=== PATIENT | male | born 1950 | race Caucasian/White ===

== ENCOUNTER 2018-11-08 12:45 | Emergency (ER) | payer OTHER ==
[~2018-11-08] VITALS: Ht 195.6 cm; Wt 115.7 kg
[~2018-11-08 12:45] MED LIST: ALDACTONE25 MG PO; ASPIR 8181 M1 PO; ASPIRIN81 M2 PO; ATORVASTATIN CA40 MG PO; CEFUROXIME500 MG PO; COLACE100 MG PO; COREG12.5 MG PO; COREG3.125 MG PO; DUONEB 2.5-0.5 M3 ML INH; EFFIENT10 MG PO; ELIQUIS5 MG PO; HYDROCODONE-AP1 EAC6 PO; LASIX 20 MG TAB20 MG PO; LASIX 40 MG TAB40 M2 PO; LISINOPRIL10 MG PO; LISINOPRIL5 MG PO; MELATONIN5 M1 PO; PACERONE 200 M200 M1 PO; PACERONE200 MG PO; PEG3350510 GM PO; PEPCID20 MG PO; PREDNISONE 10 M10 M1 PO; PREDNISONE 10 M10 MG PO; PREDNISONE 20 M20 MG; PREDNISONE 5 MG5 M1 PO; SENNA8.6 MG PO; SPIRONOLACTONE25 M1 PO; TYLENOL325 MG PO
[2018-11-08 14:44] VITALS: BP 132/65
== END 2018-11-08 14:44 | disposition home or self-care (01) ==
LOC: ER 12:45
DX: L97.128 Non-pressure chronic ulcer of left thigh with other specified severity (principal); I50.9 Heart failure, unspecified; J44.9 Chronic obstructive pulmonary disease, unspecified; Z96.651 Presence of right artificial knee joint

== ENCOUNTER → 2018-11-09 | Outpatient (CLI) | payer OTHER | LOC: HYPER 06:53 | DX: S70.312A Abrasion, left thigh, initial encounter (principal); I25.10 Atherosclerotic heart disease of native coronary artery without angina pectoris; I73.9 Peripheral vascular disease, unspecified; I25.2 Old myocardial infarction; I11.0 Hypertensive heart disease with heart failure; I50.9 Heart failure, unspecified; Z95.1 Presence of aortocoronary bypass graft; Z87.01 Personal history of pneumonia (recurrent); Z87.891 Personal history of nicotine dependence; X58.XXXA Exposure to other specified factors, initial encounter; Y93.89 Activity, other specified; Y92.89 Other specified places as the place of occurrence of the external cause; Y99.8 Other external cause status ==

== ENCOUNTER → 2018-11-16 | Outpatient (CLI) | payer OTHER | LOC: HYPER 06:42 | DX: S70.312D Abrasion, left thigh, subsequent encounter (principal); I25.10 Atherosclerotic heart disease of native coronary artery without angina pectoris; I73.9 Peripheral vascular disease, unspecified; I25.2 Old myocardial infarction; I11.0 Hypertensive heart disease with heart failure; I50.9 Heart failure, unspecified; Z95.1 Presence of aortocoronary bypass graft; Z87.01 Personal history of pneumonia (recurrent); Z87.891 Personal history of nicotine dependence; W22.8XXD Striking against or struck by other objects, subsequent encounter ==

== ENCOUNTER → 2018-12-06 | Outpatient (CLI) | payer OTHER | LOC: HYPER 06:30 | DX: S70.312D Abrasion, left thigh, subsequent encounter (principal); I73.9 Peripheral vascular disease, unspecified; I11.0 Hypertensive heart disease with heart failure; I50.9 Heart failure, unspecified; I25.10 Atherosclerotic heart disease of native coronary artery without angina pectoris; I25.2 Old myocardial infarction; Z95.0 Presence of cardiac pacemaker; Z87.891 Personal history of nicotine dependence; Z87.01 Personal history of pneumonia (recurrent); X58.XXXD Exposure to other specified factors, subsequent encounter ==

== ENCOUNTER → 2018-12-25 | Outpatient (CLI) | payer OTHER | LOC: HYPER 07:32 | DX: S70.312D Abrasion, left thigh, subsequent encounter (principal); I11.0 Hypertensive heart disease with heart failure; I50.9 Heart failure, unspecified; I25.10 Atherosclerotic heart disease of native coronary artery without angina pectoris; I73.9 Peripheral vascular disease, unspecified; I25.2 Old myocardial infarction; Z95.1 Presence of aortocoronary bypass graft; Z87.01 Personal history of pneumonia (recurrent); Z87.891 Personal history of nicotine dependence; X58.XXXD Exposure to other specified factors, subsequent encounter ==

== ENCOUNTER 2019-07-04 10:02 | Inpatient (IN) | payer OTHER ==
[~2019-07-04] VITALS: Ht 195.6 cm; Wt 121.3 kg
--- NOTE | ~2019-07-04 | EKG ---
[facility] [place] [address] ELECTROCARDIOGRAM REPORT Name: CLEMENTINA PINEDA Room #: PRE M.R.#: [id number] Admission: Attend Phys: Discharge: Date of : 48 Report #: [id number] THIS REPORT FOR: cc: Bryan Adams MD ~ THIS REPORT FOR: //name// [facility] ED Test Date: 2019-07-04 Test Time: 10:09:35 Pat Name: CLEMENTINA PINEDA Department: Room: Gender: M Senior Business Architect: MENG : 1950 Requested By: Adrian Madden Order Number: [id number] MD: Measurements Intervals [place] Rate: 132 P: -49 AR: 104 QRS: -50 QRSD: 120 T: 121 QT: 357 QTc: 529 Interpretive Statements Sinus or ectopic atrial tachycardia Incomplete left bundle branch block Compared to ECG 03/05/2015 10:33:48 Left bundle-branch block now present Sinus rhythm no longer present Intraventricular conduction delay no longer present [email or web address] By: 1009 1009 Epiphany EpiphanyMD /EPI
[2019-07-04 10:03] VITALS: BP 207/120
[2019-07-04 10:17] LABS: MCH 32.9 pg (26.0-34.0); MCHC 32.7 g/dL (28.0-37.0); MCV 100.5 fL (80.0-100.0); RBC 5.18 mil/uL (4.50-6.00); RDW 14.2 % (10.5-14.5); WBC 8.6 thou/uL (4.0-11.0)
[2019-07-04 10:20] LABS: BE(vivo) -8.6 mmol/L (-2 to +3); HCO3 22.6 mmol/L (22.0-26.0); PO2 200.9 mmHg (80.0-100.0); sO2 98.9 % (92.0-98.0)
[2019-07-04 10:22] LABS: ANION GAP 13 mmol/L (7-16); BUN 15 mg/dL (7-18); CALCIUM 9.5 mg/dL (8.5-10.1); CHLORIDE 96 mmol/L (98-107); CO2 24 mmol/L (21-32); CREATININE 1.4 mg/dL (0.7-1.3); GLUCOSE 221 mg/dL (74-106); POTASSIUM 5.3 mmol/L (3.5-5.1); SODIUM 133 mmol/L (136-145)
[2019-07-04 10:31] LABS: TROPONIN-I <0.06 ng/mL (<0.06)
[2019-07-04] MEDS ORDERED: VITAMIN D32000 UNI2 PO (10:38)
[2019-07-04] MEDS ORDERED: MONTELUKAST SODI4 M1 PO (10:39)
[2019-07-04] MEDS ORDERED: TRAZODONE 150150 M1 PO (10:40)
[2019-07-04] MEDS ORDERED: PROAIR HFA8.5 GM INH (10:40)
[2019-07-04] MEDS ORDERED: SYMBICORT160 MCG/4. INH (10:41)
[2019-07-04 11:24] LABS: BE(vivo) -1.8 mmol/L (-2 to +3); PO2 135.2 mmHg (80.0-100.0); pH 7.317 (7.360-7.450); sO2 98.5 % (92.0-98.0)
[2019-07-04 11:42] VITALS: BP 103/69
--- NOTE | 2019-07-04 19:25 | NUR ---
NEW ADMIT FOR CHF EXACERBATION AND RESP DISTRESS, ALERT X4, DENIES CHEST PAIN, DENIES SOB, 4L NASAL CANNULA, DOES NOT USE O2 AT HOME. UP AB JAIMIE, BATHROOM PRIVLEDGES. ADMISSION ASSESMENT AND HISTORY COMPLETED. CALL LIGHT IN REACH. ORIENTED TO ROOM.
[2019-07-04 20:40] VITALS: BP 112/63
--- NOTE | 2019-07-04 22:59 | NUR ---
ASSESSMENT: PT ARRIVED FROM ED VIA CART ACCOMPANIED BY STAFF. PT IS ALERT AND ORIENT TIMES FOUR. UP TO BR WITH STEADY GAIT. VSS, AFEBRILE. QUESTIONS ANSWERED. EVENING MEDS GIVEN. WILL RESUME HOME MEDS TOMORROW. PT HAS A AICD. 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 PT STATE THAT HE IS TO HAVE AN ECHO IN THE AM. PLEASANT AND COOPERATIVE WITH POC. DIURESING WELL WITH LASIX. 4 LITERS PER NC. WILL CONTINUE TO MONITOR,
[2019-07-05] VITALS (7 sets, daily range): BP systolic 99–134; BP diastolic 58–74
[2019-07-05 02:50] LABS: HEMATOCRIT 42.8 % (42.0-52.0); HEMOGLOBIN 14.3 gm/dL (14.0-18.0); MCH 32.6 pg (26.0-34.0); MCHC 33.4 g/dL (28.0-37.0); MCV 97.7 fL (80.0-100.0); RBC 4.38 mil/uL (4.50-6.00); RDW 13.7 % (10.5-14.5); WBC 8.9 thou/uL (4.0-11.0)
[2019-07-05 03:17] LABS: CALCIUM 9.1 mg/dL (8.5-10.1); CREATININE 1.5 mg/dL (0.7-1.3); POTASSIUM 4.1 mmol/L (3.5-5.1); TROPONIN-I 0.2 ng/mL (<0.06)
--- NOTE | 2019-07-05 09:34 | NUR ---
ASSUMED CARE OF PT APPROX 0715, A&0X4, AMB SOMEWHAT STEADY, SEE SEPARATE INTERVENTIONS FOR ASSESSMENTS. APPEARS IN GOOD SPIRITS, ENCOURAGED HIM TO USE CALL LIGHT FOR ANY NEEDS. CARDIOLOGY CAME IN TO SEE HIM THIS A.M. COUGH. BUE BRUISING SPORADICALLY.
--- NOTE | 2019-07-05 11:26 | 2DMMODE ---
[facility] [address] [place] [address] 2 D/M-MODE ECHOCARDIOGRAM Name: CLEMENTINA PINEDA Room #: 212-P ADM IN M.R.#: [id number] Admission: 07/04/19 Attend Phys: Darrion Alcantar MD Discharge: Date of : 48 Report #: [id number] THIS REPORT FOR: cc: Marya Gamboa MD, Deborah S. MD Lammoglia, Francisco J. MD ~ THIS REPORT FOR: //name// APPROVED REPORT Study performed: 07/05/2019 09:37:18 EXAM: Comprehensive 2D, Doppler, and color-flow Echocardiogram Patient Location: Bedside Room #: 212 Status: routine BSA: 2.70 HR: 83 bpm BP: 134/63 mmHg Other Information Study Quality: Adequate Indications Short of breath, CHF. Hx: CABG, PCI, ICD, CHF, Afib, COPD. 2D Dimensions RVDd: 37.09 mm IVSd: 9.57 (7-11mm) LVOT Diam: 23.63 (18-24mm) LVDd: 66.06 mm PWd: 9.99 (7-11mm) Ascending Ao: 36.93 (22-36mm) LVDs: 57.17 (25-40mm) Aortic Root: 38.29 mm Volumes Left Atrial Volume (Systole) Single Plane 4CH: 90.25 mL Single Plane 2CH: 118.08 mL LA ESV Index: 41.00 mL/m2 Aortic Valve AoV Peak Ochoa.: 1.17 m/s AO Peak Gr.: 5.50 mmHg LVOT Max P.95 mmHg LVOT Max V: 0.86 m/s [facility] [address] [place] [address] 2 D/M-MODE ECHOCARDIOGRAM Name: CLEMENTINA PINEDA Room #: 212-P [facility]#: [id number] Admission: 07/04/19 Attend Phys: Darrion Alcantar MD Discharge: Date of : 48 Report #: [id number] DARIN Vmax: 3.21 cm2 Mitral Valve E/A Ratio: 0.6 MV Decel. Time: 210.23 ms MV E Max Ochoa.: 0.58 m/s MV A Ochoa.: 0.91 m/s MV PHT: 60.97 ms IVRT: 79.58 ms Pulmonary Valve PV Peak Ochoa.: 0.93 m/s PV Peak Gr.: 3.48 mmHg Pulmonary Vein P Vein S: 0.37 m/s P Vein A: 0.24 m/s P Vein D: 0.26 m/s P Vein A Dur.: 114.2 msec P Vein S/D Ratio: 1.42 Tricuspid Valve RAP Estimate: 5.00 mmHg Left Ventricle Left ventricle is moderately dilated. Global hypokinesis There is normal left ventricular wall thickness. Left ventricular systolic function is moderately decreased. LVEF is 30-35%. Mild diastolic dysfunction is present (impaired relaxation pattern). Right Ventricle The right ventricle is normal size. The right ventricular systolic function is normal. Atria Left atrium is moderately dilated. Right atrium is mildly dilated. Device lead is present in the right atrium. Aortic Valve The aortic valve is normal in structure. Trace aortic regurgitation. There is no aortic valvular stenosis. Mitral Valve The mitral valve is normal in structure. There is no mitral valve regurgitation noted. No evidence of mitral valve stenosis. Tricuspid Valve The tricuspid valve is normal in structure. There is no tricuspid valve regurgitation noted. Unable to assess PA pressure. [facility] [address] [place] [address] 2 D/M-MODE ECHOCARDIOGRAM Name: CLEMENTINA PINEDA Room #: 212-P [facility] .R.#: [id number] Admission: 07/04/19 Attend Phys: Darrion Alcantar MD Discharge: Date of : 48 Report #: [id number] Pulmonic Valve The pulmonary valve is normal in structure. Trace pulmonic regurgitation. Great Vessels The aortic root is normal in size. The ascending aorta is normal in size. IVC is normal in size and collapses >50% with inspiration. Pericardium There is no pericardial effusion. <Conclusion> Left ventricle is moderately dilated. LVEF is 30-35%. Global hypokinesis Left atrium is moderately dilated. Right atrium is mildly dilated. Device lead is present in the right atrium. The aortic valve is normal in structure. Trace aortic regurgitation. The mitral valve is normal in structure. The tricuspid valve is normal in structure. There is no tricuspid valve regurgitation noted. Unable to assess PA pressure. The pulmonary valve is normal in structure. Trace pulmonic regurgitation. There is no pericardial effusion. <ELECTRONICALLY SIGNED> By: Scott Mccabe MD 07/05/19 1125 1125 1125 Scott Mccabe MD /INF
--- NOTE | 2019-07-05 22:47 | NUR ---
ASSUMED CARE PT AT APPROX 1900. PT ALERT AND ORIENTED. VSS. DENIES PAIN. O2 SATS WNL ON ROOM AIR. PT INDEPENDENT. DENIES NEEDS AT THIS TIME. PT CURRENTLY RESTING IN BED. WILL PASS ON REPORT TO NURSE
[2019-07-06 04:53] VITALS: BP 112/69
[2019-07-06 05:18] LABS: HEMATOCRIT 44.8 % (42.0-52.0); HEMOGLOBIN 14.8 gm/dL (14.0-18.0); MCH 32.8 pg (26.0-34.0); MCHC 33.1 g/dL (28.0-37.0); MCV 99.1 fL (80.0-100.0); RBC 4.51 mil/uL (4.50-6.00); RDW 13.9 % (10.5-14.5); WBC 7.8 thou/uL (4.0-11.0)
[2019-07-06 05:27] LABS: CALCIUM 9.2 mg/dL (8.5-10.1); CREATININE 1.3 mg/dL (0.7-1.3); POTASSIUM 3.6 mmol/L (3.5-5.1)
--- NOTE | 2019-07-06 07:55 | NUR ---
ASSUMED CARE OF PT APPROX 0715, A&0X4, INDEPENDENT WALKING, POSSIBLE D/C TODAY. STANDING WEIGHTS DONE THIS A.M. SEE SEPARATE INTERVENTIONS FOR ASSESSMENTS, CARDIAC MONITORED
[2019-07-06 08:00] VITALS: BP 122/61
[2019-07-06] MEDS ORDERED: TORSEMIDE20 MG PO (09:41)
[2019-07-06 09:46] VITALS: BP 122/61
== END 2019-07-06 10:53 | disposition home or self-care (01) | DRG 291 ==
LOC: ER 10:02 → 2N 13:31 → EROBS 13:31 → 2N 17:36 → ENTRNSPT 07-06 10:41 → EDTRNSPTSTS 07-06 10:47 → 2N 07-06 10:53
PROVIDERS: Emergency Medicine; ADMIT Hospitalist
DX: I13.0 Hypertensive heart and chronic kidney disease with heart failure and stage 1 through stage 4 chronic kidney disease, or unspecified chronic kidney disease (principal); I50.23 Acute on chronic systolic (congestive) heart failure; J96.20 Acute and chronic respiratory failure, unspecified whether with hypoxia or hypercapnia; N17.9 Acute kidney failure, unspecified; I42.9 Cardiomyopathy, unspecified; J44.9 Chronic obstructive pulmonary disease, unspecified; Z96.651 Presence of right artificial knee joint; I25.10 Atherosclerotic heart disease of native coronary artery without angina pectoris; I48.91 Unspecified atrial fibrillation; E78.5 Hyperlipidemia, unspecified; N18.9 Chronic kidney disease, unspecified; Z60.2 Problems related to living alone; G47.00 Insomnia, unspecified; E55.9 Vitamin D deficiency, unspecified; Z95.5 Presence of coronary angioplasty implant and graft; Z95.1 Presence of aortocoronary bypass graft; Z95.810 Presence of automatic (implantable) cardiac defibrillator; Z87.891 Personal history of nicotine dependence; Z79.82 Long term (current) use of aspirin; Z79.899 Other long term (current) drug therapy
CPT/HCPCS: 10081

== ENCOUNTER 2020-05-29 17:13 | Inpatient (IN) | payer OTHER ==
[~2020-05-29] VITALS: Ht 195.6 cm; Wt 120.7 kg
[~2020-05-29 17:13] MED LIST changes: +MONTELUKAST SODI4 M1 PO; +PROAIR HFA8.5 GM INH; +SYMBICORT160 MCG/4. INH; +TORSEMIDE20 MG PO; +TRAZODONE 150150 M1 PO; +VITAMIN D32000 UNI2 PO
[2020-05-29 17:14] VITALS: BP 111/39
[2020-05-29 18:17] LABS: HEMATOCRIT 39.6 % (42.0-52.0); HEMOGLOBIN 13.3 gm/dL (14.0-18.0); MCH 33.8 pg (26.0-34.0); MCHC 33.6 g/dL (28.0-37.0); MCV 100.5 fL (80.0-100.0); PLATELET COUNT 284 thou/uL (150-400); RBC 3.94 mil/uL (4.50-6.00); RDW 13.9 % (10.5-14.5); WBC 14.9 thou/uL (4.0-11.0)
[2020-05-29 18:26] LABS: CREATININE 1.3 mg/dL (0.7-1.3); POTASSIUM 4.5 mmol/L (3.5-5.1)
[2020-05-29 18:32] LABS: ALBUMIN 2.6 g/dL (3.4-5.0); DIRECT BILIRUBIN 0.3 mg/dL (<0.1-0.2); TOTAL PROTEIN 7.3 g/dL (6.4-8.2)
[2020-05-29 18:41] LABS: ABSOLUTE NEUTROPHILS 13.9 thou/uL (1.4-8.2)
[2020-05-29] MEDS ORDERED: DEMADEX20 MG PO (18:47)
[2020-05-29] MEDS ORDERED: CARVEDILOL25 MG PO (20:55)
[2020-05-30] VITALS (7 sets, daily range): BP systolic 99–117; BP diastolic 54–74
--- NOTE | 2020-05-30 03:03 | NUR ---
PT ARRIVED ON UNIT FROM ER AT 0130. ADMITTED WITH SOB AND COUGH--R/O COVID. AMBULATING TO BATHROOM INDEPENDENTLY. DENIES PAIN. RESTING COMFORTABLY. NO NEEDS VOICED. CALL LIGHT WITHIN REACH. FREQUENT OBSERVATION.
[2020-05-30 09:27] LABS: HEMATOCRIT 39.1 % (42.0-52.0); HEMOGLOBIN 12.7 gm/dL (14.0-18.0); MCH 33.4 pg (26.0-34.0); MCHC 32.5 g/dL (28.0-37.0); MCV 102.8 fL (80.0-100.0); RBC 3.8 mil/uL (4.50-6.00); RDW 14.1 % (10.5-14.5); WBC 9.3 thou/uL (4.0-11.0)
[2020-05-30 09:53] LABS: ALBUMIN 2.2 g/dL (3.4-5.0); CALCIUM 9.1 mg/dL (8.5-10.1); CREATININE 1.2 mg/dL (0.7-1.3); POTASSIUM 4.7 mmol/L (3.5-5.1); TOTAL BILIRUBIN 0.4 mg/dL (0.2-1.0); TOTAL PROTEIN 6.9 g/dL (6.4-8.2)
--- NOTE | 2020-05-30 15:16 | EKG ---
[place] [address] [facility] [place] [address] ELECTROCARDIOGRAM REPORT Name: CLEMENTINA PINEDA Room #: 353-P ADM IN M.R.#: [id number] Admission: 05/29/20 Attend Phys: Axel Chowdhury MD Discharge: Date of : 48 Report #: [id number] [facility] ED Test Date: 2020-05-29 Test Time: 17:33:18 Pat Name: CLEMENTINA PINEDA Department: Room: 353 Gender: M International Specialist: JCHAIREZ : 1950 Requested By: Tate Chau Order Number: [id number] MD: Rock Gómez Measurements Intervals [place] Rate: 99 P: 82 LA: 55 QRS: -11 QRSD: 120 T: 122 QT: 362 QTc: 465 Interpretive Statements Sinus rhythm Nonspecific ST and T wave abnormality Compared to ECG 07/04/2019 10:09:35 Nonspecific intraventricular conduction delay no longer present Electronically Signed On 05-30-2020 15:15:53 STEAM SHOVEL OPERATING ENGINEER by Rock Gómez [email or web address] <ELECTRONICALLY SIGNED> By: Rokc Gómez MD, [facility] 05/30/20 1515 1733 173 Rock Gómez MD, FACC /EPI
--- NOTE | 2020-05-30 15:21 | NUR ---
RN ASSUMED PT'S CARE AT 0700AM, PT IS A&OX3, PT IS ON O2 4L/MIN/NC TO KEEP O2SAT>93%, PT FELL HAS SOME SOB WITH ACTIVITIES, PT GETS UP TO BATH ROOM BY HIMSELF, PT'S COVID PCR TEST ARE NEGATIVE , PT'S VS ARE STABLE BY THIS TIME.
--- NOTE | 2020-05-30 23:05 | NUR ---
PT WATCHING TV IN BED. O2 PER NC 4L. LUNGS WHEEZES. PT VERY TALKATIVE NOT SOA WITH CONVERSATION. PT REPORTED LOOKING FORWARD TO TRANSFERRING OFF COVID UNIT. PT PROVIDED HS SNACK.
[2020-05-31 05:38] VITALS: BP 130/87
[2020-05-31 07:15] VITALS: BP 120/72
--- NOTE | 2020-05-31 11:16 | NUR ---
RN ASSUMED PT'S CARE AT 0700AM, PT IS A&OX3, PT IS O2 4L/MIN/NC, PT HAS SOME SOB WITH ACTIVITIES, PT GETS UP TO BATH ROOM BY HIMSELF, PT'S VS ARE STABLE AT THIS TIME, PT'S COVID TESTS ARE NEGATIVE AT 05/29/20 AND 05/30/20, PT'S COVID ISOLATION HAS DC PER ID
[2020-05-31 11:19] VITALS: BP 106/60
[2020-05-31 11:47] LABS: ABSOLUTE NEUTROPHILS 12.5 thou/uL (1.4-8.2); HEMATOCRIT 41.2 % (42.0-52.0); HEMOGLOBIN 13.5 gm/dL (14.0-18.0); LYMPHOCYTES 3.4 % (24.0-44.0); MCH 33.5 pg (26.0-34.0); MCHC 32.7 g/dL (28.0-37.0); MCV 102.3 fL (80.0-100.0); MONOCYTES 3.7 % (1.0-8.0); PLATELET COUNT 334 thou/uL (150-400); POLYS 92.9 % (36.0-66.0); RBC 4.03 mil/uL (4.50-6.00); WBC 13.5 thou/uL (4.0-11.0)
[2020-05-31 15:21] VITALS: BP 119/64
[2020-05-31 19:00] VITALS: BP 121/68
--- NOTE | 2020-05-31 19:06 | NUR ---
PT WAS GOING TO 213 CCU AT 1830PM.
[2020-06-01 04:00] VITALS: BP 126/84
[2020-06-01 07:35] VITALS: BP 130/85
--- NOTE | 2020-06-01 07:56 | NUR ---
ASSUMED PATIENT CARE AT 1845. VITAL SIGNS STABLE WITH PATIENT HAVING NO COMPLAINTS OF PAIN OR NAUSEA. BREATHING STABLE ON OXYGEN EVIDENCED BY ASSESSMENTS AND SPOT OXYGENATION CHECKS. PATIENT IS FULLY ORIENTED AND ABLE TO PARTICIPATE IN CARE AND CALL APPROPRIATELY FOR NEEDS. UP MULTIPLE TIMES WITH STANDBY ASSISTANCE PATIENT APPEARS STRONG AND BALANCED ON FEET AND MAY BE DOWNGRADED TO LOW FALL RISK TODAY. PATIENT IS EXCITED TO HAVE VISIT FROM SON. CONTINUE PLAN OF CARE.
[2020-06-01 11:50] LABS: MCH 33.6 pg (26.0-34.0); MCHC 32.5 g/dL (28.0-37.0); MCV 103.6 fL (80.0-100.0); RBC 4.15 mil/uL (4.50-6.00); RDW 14.2 % (10.5-14.5)
[2020-06-01 11:55] LABS: CALCIUM 9.6 mg/dL (8.5-10.1); CREATININE 1.3 mg/dL (0.7-1.3); POTASSIUM 4.1 mmol/L (3.5-5.1)
[2020-06-01 12:00] VITALS: BP 127/75; BP 128/80
[2020-06-01 17:20] VITALS: BP 137/85
[2020-06-01 17:25] VITALS: BP 108/68
--- NOTE | 2020-06-01 18:26 | NUR ---
AAOX4. CALM, COOPERATIVE. GAIT STEADY. VOIDING PER URINAL. A-PACED, SR WITH PVC'S PER TELE. DENIES CP, SOA ON 3L. FOLLOWING CLOSELY.
[2020-06-01 20:03] VITALS: BP 141/87
[2020-06-02 04:42] LABS: HEMATOCRIT 40.9 % (42.0-52.0); HEMOGLOBIN 13.2 gm/dL (14.0-18.0); MCH 33.2 pg (26.0-34.0); MCHC 32.2 g/dL (28.0-37.0); MCV 102.9 fL (80.0-100.0); RBC 3.97 mil/uL (4.50-6.00); RDW 14.1 % (10.5-14.5); WBC 9.9 thou/uL (4.0-11.0)
[2020-06-02 04:45] VITALS: BP 143/90; BP 143/920
[2020-06-02 08:00] VITALS: BP 136/91
[2020-06-02] MEDS ORDERED: PREDNISONE 5 MG5 MG PO (11:43)
[2020-06-02] MEDS ORDERED: ZITHROMAX500 MG PO (11:43)
[2020-06-02] MEDS ORDERED: MUCINEX600 MG PO (11:43)
[2020-06-02] MEDS ORDERED: CEFUROXIME500 MG PO (11:43)
[2020-06-02 11:56] VITALS: BP 138/76
[2020-06-02 11:59] VITALS: BP 138/76
[2020-06-02 14:31] VITALS: BP 138/76
--- NOTE | 2020-06-02 16:11 | NUR ---
DISCHARGING TO HOME WITH HOME HEALTH AND O2. TELE PACK SECURED. SALINE LOCK DISCONTINUED. FROM UNIT BY DAVID
--- NOTE | 2020-06-02 16:49 | NUR ---
Patient admits with pna. Patient to [place] today. He needs home health and home oxyge. Patient reports he has an RN with [facility] from insurance. No preference for home health or dme. Sat/Ex indicates need for oxygen for home. Referral to [facility] who [facility] but as patient leaving they verified insurance and reports its a new plan. Sp with patient who reports he has new insuracne to begin this month. copied new insurance cards. Insurance is active for outpatient needs. His insurance that he began hosp stay will cover inpatient not outpatient stay. Alerted will attempt to find new home health agency. [facility] Alerted to patient will call him regarding hh care.
--- NOTE | 2020-06-02 16:54 | NUR ---
FAXED REFERRAL TO [facility] FOR HOME O2 SPOKE WITH SATINDER IN INTAKE HE RECEIVED REFERRAL AND WILL DROP OF O2 TANK PRIOR TO DC. [facility]ED REF[facility]ALS FOR HH [facility] THEY COULD NOT ACCEPT OON WITH INSURANCE. FAXED REFERRALS TO [facility] RECEIVED CONFIRMATION [facility] TO [facility]AR IF THEY CAN ACCEPT.
--- NOTE | 2020-06-03 13:17 | NUR ---
PT WAS DISCHARGED YESTERDAY 06/02/20 TO HOME WITH HH TRIED NUMEROUS HH AGENCIES THEY DO NOT ACCEPT INSURANCE. F/U WITH [facility] THEY CAN ACCEPT BUT WOULD BE ABLE TO START VISITS NOT TIL Tuesday06/07/20.
[2020-06-03] MEDS ORDERED: PREDNISONE 10 M10 M1 PO (15:58)
[2020-06-03] MEDS ORDERED: PREDNISONE 5 MG5 MG PO (15:58)
[2020-06-04] MEDS ORDERED: ELIQUIS5 MG PO (10:56)
--- NOTE | 2020-06-04 16:56 | NUR ---
Cont to attempt to find agency. [facility] only [facility] accept insurance. [facility] unable to accept, [facility] able to accept but no start of care until Tuesday. Spoke with patient he was agreeable He reports his prednisone is not at pharmacy. SP with Latasha who sent script for medication to [place] [address] [facility] which patient reports is his pharmacy. no further needs
== END 2020-06-02 16:44 | disposition home health service (06) | DRG 871 ==
LOC: ER 17:13 → 3W 20:41 → EROBS 20:41 → 2N 20:41 → 3W 05-30 00:33 → 2N 05-31 18:34
PROVIDERS: Nurse Practitioner; Nurse Practitioner Family; ADMIT Internal Medicine; ATTEND Internal Medicine
DX: A41.9 Sepsis, unspecified organism (principal); J18.9 Pneumonia, unspecified organism; J96.21 Acute and chronic respiratory failure with hypoxia; E43 Unspecified severe protein-calorie malnutrition; J44.0 Chronic obstructive pulmonary disease with (acute) lower respiratory infection; E87.1 Hypo-osmolality and hyponatremia; I42.9 Cardiomyopathy, unspecified; I50.22 Chronic systolic (congestive) heart failure; J44.1 Chronic obstructive pulmonary disease with (acute) exacerbation; I25.10 Atherosclerotic heart disease of native coronary artery without angina pectoris; N18.9 Chronic kidney disease, unspecified; I48.0 Paroxysmal atrial fibrillation; Z96.651 Presence of right artificial knee joint; Z20.822 Contact with and (suspected) exposure to COVID-19; Z79.899 Other long term (current) drug therapy; Z95.1 Presence of aortocoronary bypass graft; Z87.891 Personal history of nicotine dependence; Z95.0 Presence of cardiac pacemaker
CPT/HCPCS: 10081; 10879